=== PATIENT | male | born 1980 | race Two or more races ===

== ENCOUNTER 2016-06-23 23:20 | Emergency (ER) | payer SELFPAY ==
[~2016-06-23] VITALS: Ht 170.2 cm; Wt 69.5 kg
[2016-06-23 23:25] VITALS: Ht 170.2 cm; Wt 69.5 kg
[2016-06-24] MEDS ORDERED: hydrALAzine 20 MG INJ IV ONE (01:30)
[2016-06-24 01:50] LABS: ADD SCAN DIFF NO
[2016-06-24 01:52] LABS: BASOPHILS % 0.4 % (0.0-2.0); EOSINOPHILS # 0.1 10^3/ul (0.0-0.5); HEMATOCRIT 44.4 % (42.0-52.0); HEMOGLOBIN 15.2 g/dl (14.0-18.0); LYMPHOCYTES # 2.2 10^3/ul (0.8-2.9); MEAN CORPUSCULAR HEMOGLOBIN 30.7 pg (29.0-33.0); MEAN CORPUSCULAR HGB CONC 34.2 g/dl (32.0-37.0); MEAN CORPUSCULAR VOLUME 89.7 fl (82.0-101.0); MEAN PLATELET VOLUME 11.2 fl (7.4-10.4); MONOCYTE # 0.6 10^3/ul (0.3-0.9); MONOCYTES % 7.3 % (0.0-11.0); NEUTROPHIL # 5.2 10^3/ul (1.6-7.5); NEUTROPHILS % 64.1 % (39.0-77.0); PLATELET COUNT 191 10^3/UL (140-415); RED BLOOD COUNT 4.95 10^6/ul (4.70-6.10); RED CELL DISTRIBUTION WIDTH 13.2 % (11.5-14.5); WHITE BLOOD COUNT 8.1 10^3/ul (4.8-10.8)
[2016-06-24 02:02] LABS: CHLORIDE 102 mmol/L (97-110); POTASSIUM 4.5 mmol/L (3.5-5.1); SODIUM 141 mmol/L (135-144)
[2016-06-24 02:03] LABS: INR 0.96; PROTIME 12.8 Sec (12.2-14.2)
[2016-06-24 02:04] LABS: PARTIAL THROMBOPLASTIN TIME 25.6 Sec (25.0-35.0)
[2016-06-24 02:05] LABS: ANION GAP 16 (8-16); BLOOD UREA NITROGEN 11 mg/dl (7-20); CALCIUM 9.9 mg/dl (8.4-10.2); CARBON DIOXIDE 28 mmol/L (21-31); GLUCOSE 159 mg/dl (70-220)
--- NOTE | 2016-06-24 02:08 | RADRPT ---
PROCEDURE: XR Chest. CLINICAL INDICATION: Headache TECHNIQUE: AP Portable chest. COMPARISON: No pertinent prior examinations were submitted for comparison. FINDINGS: The cardiomediastinal silhouette is normal. The lungs are clear. The osseous structures are unrema rkable. IMPRESSION: No acute findings. RPTAT: HIKT .Ant Epperson MD, MD Date Time Electronically viewed and signed by .Ant Epperson MD, MD on 06/24/2016 02:08 .T/
[2016-06-24 02:27] LABS: TROPONIN-I < 0.012 ng/ml (0.00-0.12)
--- NOTE | 2016-06-24 02:29 | RADRPT ---
PROCEDURE: Noncontrast CT Head. CLINICAL INDICATION: Headache TECHNIQUE: Noncontrast CT of the head was obtained. The administered radiation dose was CTDI vol = 45 mGy, DLP = 720 mGy-cm. COMPARISON: No pertinent prior examinations were submitted for comparison. FINDINGS: The ventricles and sulci are within normal limits. There is no acute intracranial hemorrhage or ext ra-axial fluid collection. There is no mass effect. No midline shift is identified. There is no loss of alvarado-white differentiation to suggest acute infarction. The orbits are within normal limits. The paranasal sinuses and mastoid air cells are without fluid. No destructive osseous lesion is identified. IMPRESSION: No acute findings. RPTAT: HIKT .Ant Epperson MD, MD Date Time Electronically viewed and signed by .Ant Epperson MD, on 06/24/2016 02:29 .T/
--- NOTE | 2016-06-24 02:36 | ERD ---
ER Documentation Chief Complaint Date/Time DATE: 06/24/16 TIME: 02:34 Chief Complaint hypertension w/ headache and neck pain x 2 days HPI This very pleasant 35-year-old male with hypertension and headache and neck pain for 2 days. His blood pressures been severely elevated. He denies any focal neurologic complaints. Headache is mild to moderate intensity. No visual acuity changes. No other current complaints. ROS All systems reviewed and are negative except as per history of present illness. Allergies Allergies: Coded Allergies: No Known Allergy (Unverified , 06/23/16) PMhx/Soc History of Surgery: No Anesthesia Reaction: No Hx Neurological Disorder: No Hx Respiratory Disorders: No Hx Cardiac Disorders: Yes (HTN) Hx Psychiatric Problems: No Hx Miscellaneous Medical Probl: No Hx Alcohol Use: No Hx Substance Use: No Hx Tobacco Use: No Smoking Status: Never smoker Physical Exam Vitals Vital Signs Date Time Temp Pulse Resp B/P Pulse Ox O2 Delivery O2 Flow Rate FiO2 06/24/16 01:28 97.9 79 20 169/107 100 Room Air 06/23/16 23:25 97.8 72 30 175/88 99 Physical Exam Const: [] Head: Atraumatic Eyes: Normal Conjunctiva ENT: Normal External Ears, Nose and Mouth. Neck: Full range of motion..~ No meningismus. Resp: Clear to auscultation bilaterally Cardio: Regular rate and rhythm, no murmurs Abd: Soft, non tender, non distended. Normal bowel sounds Skin: No petechiae or rashes Back: No midline or flank tenderness Ext: No cyanosis, or edema Neur: Awake and alert Psych: Normal Mood and Affect Result Diagram: 06/24/16 0129 06/24/16 0129 Results 24 hrs Laboratory Tests Test 06/24/16 01:29 White Blood Count 8.110^3/ul Red Blood Count 4.9510^6/ul Hemoglobin 15.2g/dl Hematocrit 44.4% Mean Corpuscular Volume 89.7fl Mean Corpuscular Hemoglobin 30.7pg Mean Corpuscular Hemoglobin Concent 34.2g/dl Red Cell Distribution Width 13.2% Platelet Count 49059^3/UL Mean Platelet Volume 11.2fl Neutrophils % 64.1% Lymphocytes % 27.0% Monocytes % 7.3% Eosinophils % 1.0% Basophils % 0.4% Nucleated Red Blood Cells % 0.0/100WBC Neutrophils # 5.210^3/ul Lymphocytes # 2.210^3/ul Monocytes # 0.610^3/ul Eosinophils # 0.110^3/ul Basophils # 0.010^3/ul Nucleated Red Blood Cells # 0.010^3/ul Prothrombin Time 12.8Sec Prothrombin Time Ratio 1.0 INR International Normalized Ratio 0.96 Activated Partial Thromboplast Time 25.6Sec Sodium Level 141mmol/L Potassium Level 4.5mmol/L Chloride Level 102mmol/L Carbon Dioxide Level 28mmol/L Anion Gap 16 Blood Urea Nitrogen 11mg/dl Creatinine 1.00mg/dl Glucose Level 159mg/dl Calcium Level 9.9mg/dl Troponin I < 0.012ng/ml Current Medications Medications (Trade) Dose Ordered Sig/[place] Route PRN Reason Start Time Stop Time Status Last Admin Dose Admin Hydralazine HCl (Apresoline) 20 mg ONCE ONCE IV 06/24/16 01:30 06/24/16 01:31 DC 06/24/16 02:08 Procedures/MDM EKG: Rate/Rhythm: Normal Sinus Rhythm QRS, ST, T-waves: No changes consistent w/ acute ischemia Impression: No evidence of ischemia or arrhythmia Chest X-ray 1V Interpreted by me: Soft Tissue: No acute abnormalities Bones: No acute abnormalities Mediastinum/Cardiac Silhouette/Lungs: No acute abnormalities Patient's neurologic symptoms have stabilized while they have been evaluated in the department and are appropriate for outpatient work up. No e/o meningitis, intracranial bleed, seizure, stroke. Patient's blood pressure was elevated (>120/80) but appears stable without evidence of hypertension emergency or urgency. The patient was counseled about the risks of hypertension and urged to pursue outpatient monitoring and therapy within a week with their primary care physician. Departure Diagnosis: Primary Impression: Hypertension Hypertension type: unspecified secondary hypertension Qualified Code: I15.9 - Secondary hypertension Additional Impression: Head ache Headache type: unspecified Headache chronicity pattern: unspecified pattern Intractability: not intractable Qualified Code: R51 - Nonintractable headache, unspecified chronicity pattern, unspecified headache type Condition: Stable CLARI MUNGUIASonja Jun 24, 2016 02:36
[2016-06-24] MEDS ORDERED: HYDR-3671 PO ×2 (02:37)
[2016-06-24] MEDS ORDERED: HYDROCODONE/APAP (5/325) TAB PO ONE (03:00)
[2016-06-24 03:50] VITALS: BP 124/62; PULSE 78; RESP 20; TEMP 98
== END 2016-06-24 04:00 | disposition home or self-care (01) ==
LOC: E/R 23:20
DX: I15.9 Secondary hypertension, unspecified (principal); R07.9 Chest pain, unspecified
CPT/HCPCS: 36415; 70450; 71010; 80048; 84484; 85025; 85610; 85730; 93005; 96374; 99285; J0360

== ENCOUNTER 2016-06-26 19:46 | Emergency (ER) | payer SELFPAY ==
[~2016-06-26] VITALS: Ht 167.6 cm; Wt 70.0 kg
[~2016-06-26 19:46] MED LIST: HYDR-3671 PO
[2016-06-26 20:20] VITALS: Ht 167.6 cm; Wt 70.0 kg
[2016-06-26 23:21] VITALS: BP 169/80; PULSE 81; RESP 18
--- NOTE | 2016-06-26 23:25 | ERA ---
ER Documentation Chief Complaint Date/Time DATE: 06/26/16 TIME: 23:25 Chief Complaint HTN HPI The patient is a 35-year-old male, presenting to the ER because of elevated blood pressure. He was seen in the ER 2 days ago and had a negative CT scan of the brain and discharged with hydralazine 25 mg 4 times a day for hypertension. He missed a dose today. He denies headache, neck pain, chest pain, dyspnea, abdominal pain, vomiting, dysuria, diarrhea. He does not smoke nor drink Past medical history: Hypertension Past surgical history: eye ROS All systems reviewed and are negative except as per history of present illness. Medications Home Meds Active Scripts Amlodipine Besylate* (Norvasc*) 5 Mg Tablet, 5 MG PO DAILY for 30 Days, TAB Prov:TASH WOLF MD 06/26/16 Hydralazine Hcl* (Hydralazine Hcl*) 25 Mg Tab, 25 MG PO Q6H Y for htn, #60 TAB Prov:CLARI MUNGUIA 06/24/16 Hydralazine Hcl* (Hydralazine Hcl*) 25 Mg Tab, 25 MG PO Q6, #120 TAB Prov:CLARI MUNGUIA S. 06/24/16 Allergies Allergies: Coded Allergies: No Known Allergy (Unverified , 06/23/16) PMhx/Soc History of Surgery: No Anesthesia Reaction: No Hx Neurological Disorder: No Hx Respiratory Disorders: No Hx Cardiac Disorders: Yes (HTN) Hx Psychiatric Problems: No Hx Miscellaneous Medical Probl: No Hx Alcohol Use: No Hx Substance Use: No Hx Tobacco Use: No Smoking Status: Never smoker Physical Exam Vitals Vital Signs Date Time Temp Pulse Resp B/P Pulse Ox O2 Delivery O2 Flow Rate FiO2 06/26/16 23:21 81 18 169/80 99 Room Air 06/26/16 20:20 99.3 89 20 178/87 100 Physical Exam Const: No acute distress. Head: Atraumatic. Eyes: Normal Conjunctiva. ENT: Normal External Ears, Nose and Mouth. Neck: Full range of motion. No meningismus. Resp: Clear to auscultation bilaterally. Cardio: Regular rate and rhythm, no murmurs. Abd: Soft, non distended, normal bowel sounds, non tender. Skin: No petechiae or rashes. Back: No midline or flank tenderness. Ext: No cyanosis, or edema. Neur: Awake and alert. No focal deficit Psych: Normal Mood and Affect. Procedures/MDM MEDICAL MAKING DECISION: The patient is a 35-year-old male, presenting with acute accelerated hypertension, improved in the ER without any intervention. He is taking hydralazine 25 mg 4 times a day. It is difficult to comply for him , therefore, I will switch him to Norvasc 5 mg daily. The differential diagnoses considered include but are not limited to subarachnoid hemorrhage, occult trauma, CVA, meningitis, encephalitis, hypertension, tension, migraine, cluster, narcotic withdrawal, cervical spine disease. Departure Diagnosis: Primary Impression: Accelerated hypertension Condition: Good Comments He was advised to stop hydralazine and start Norvasc I discussed the findings with the patient. I advised the patient to follow-up with the primary physician in about 1-2 days, sooner if needed and return if any concern. TASH WOLF MD Jun 26, 2016 23:25
[2016-06-26] MEDS ORDERED: AMLO5TAB4 PO (23:32)
== END 2016-06-26 23:45 | disposition home or self-care (01) ==
LOC: E/R 19:46
DX: I10 Essential (primary) hypertension (principal); R40.2142 Coma scale, eyes open, spontaneous, at arrival to emergency department; R40.2252 Coma scale, best verbal response, oriented, at arrival to emergency department; R40.2362 Coma scale, best motor response, obeys commands, at arrival to emergency department
CPT/HCPCS: 99283